=== PATIENT | female | born 1985 ===

== ENCOUNTER 2024-06-01 17:27 | Inpatient (IN) | payer MEDICAID, OTHER ==
[~2024-06-01] VITALS: Ht 162.6 cm; Wt 76.0 kg
[2024-06-01 18:43] LABS: BASOPHILS % (AUTO) 0.2 % (0.0-2.0); EOSINOPHILS % (AUTO) 0.2 % (1.0-6.0); HEMATOCRIT 40.7 % (36-46); HEMOGLOBIN 13.4 g/dL (12.0-16.0); LYMPHOCYTES # (AUTO) 1.2 K/uL (1.0-4.8); LYMPHOCYTES % (AUTO) 10.3 % (22.0-44.0); MEAN CORPUSCULAR HEMOGLOBIN 28.9 pg (26.0-34.0); MEAN CORPUSCULAR VOLUME 88 fL (80-100); MONOCYTES # (AUTO) 0.4 K/uL (0.1-1.0); MONOCYTES % (AUTO) 3.1 % (2.0-9.0); NEUTROPHILS # (AUTO) 9.9 K/uL (1.8-7.7); PLATELET COUNT (AUTO) 256 K/uL (150-450); RED BLOOD CELL COUNT(AUTO) 4.65 MIL/uL (4.00-5.20); RED CELL DISTRIBUTION WIDTH 23.2 % (11.5-14.5); WHITE BLOOD COUNT (AUTO) 11.5 K/uL (4.5-11.0)
[2024-06-01 18:45] LABS: NEUTROPHILS % (AUTO) 86.2 % (40.0-70.0)
[2024-06-01 19:01] LABS: ANION GAP 7 mmol/L (8-16); CARBON DIOXIDE 27 mmol/L (22-29); CHLORIDE 103 mmol/L (98-107); CREATININE 0.85 mg/dL (0.60-1.30); GLOMERULAR FILTR. RATE CALC > 60 mL/min (>60); GLUCOSE,RANDOM 143 mg/dL (70-110); POTASSIUM 3.6 mmol/L (3.5-5.1); SODIUM SERUM 137 mmol/L (136-145); UREA NITROGEN, BLOOD 13 mg/dL (7-18)
[2024-06-01 19:03] LABS: B-TYPE NATRIURETIC PEPTIDE 6 pg/mL (0-100); SALICYLATE < 0.2 mg/dL (2.8-20.0)
[2024-06-01 19:04] LABS: TROPONIN I-HIGH SENSITIVITY Less Than 4 ng/L (<51)
[2024-06-01 19:20] LABS: ALANINE AMINOTRANSFERASE 28 U/L (12-78); ALBUMIN 3.5 g/dL (3.4-5.0); ALKALINE PHOSPHATASE 72 U/L (46-116); ASPARTATE AMINOTRANSFERASE 24 U/L (15-37); BILIRUBIN,TOTAL 0.6 mg/dL (0.1-1.0); CREATINE KINASE, TOTAL ONLY 117 U/L (26-192); RBC MORPHOLOGY COMMENT ABNORMAL RBC MORPH; TOTAL PROTEIN, SERUM 7.4 g/dL (6.4-8.2)
[2024-06-01 19:25] LABS: ACETAMINOPHEN < 2 mcg/mL (10-30)
[2024-06-01 19:31] LABS: PROTHROMBIN TIME 10.3 SEC (9.4-11.6)
[2024-06-01] MEDS: SODIUM CHLORIDE 0.9% 1,000 ML IV ONE (19:43)
[2024-06-01] MEDS: ONDANSETRON HCL 4 MG/2 ML VIAL IVP ONE (19:43)
[2024-06-01 20:17] LABS: PHOSPHORUS 3.2 mg/dL (2.5-4.9)
[2024-06-01 20:57] LABS: ALCOHOL, BLOOD (SERUM) < 3 mg/dL (0-10)
[2024-06-01] MEDS ORDERED: HALOPERIDOL 5 MG TABLET PO PRN (21:30)
[2024-06-01] MEDS ORDERED: LORazepam 2 MG TABLET PO PRN (21:30)
[2024-06-01] MEDS ORDERED: ZOLPIDEM TARTRATE 10 MG TABLET PO PRN (21:30)
[2024-06-01 21:57] LABS: APPEARANCE,URINE CLEAR (CLEAR); BILIRUBIN,URINE NEGATIVE (NEGATIVE); COLOR,URINE YELLOW (YELLOW); GLUCOSE, URINE (UA) NEGATIVE (NEGATIVE); KETONES,URINE TRACE mg/dL (NEGATIVE); LEUKOCYTE ESTERASE ,URINE NEGATIVE (NEGATIVE); NITRATE,URINE NEGATIVE (NEGATIVE); OCCULT BLOOD,URINE NEGATIVE (NEGATIVE); PROTEIN,URINE TRACE mg/dL (NEGATIVE); SPECIFIC GRAVITIY, URINE 1.025 (1.003-1.030); UROBILINOGEN,URINE <=1.0 mg/dL (<=1.0)
[2024-06-01 22:08] LABS: ALCOHOL, URINE DRUG SCREEN NEGATIVE (NEGATIVE); AMPHET/METH SCREEN,URINE NEGATIVE (NEGATIVE); BARBITURATE SCREEN, URINE NEGATIVE (NEGATIVE); BENZODIAZEPINES SCREEN,URINE NEGATIVE (NEGATIVE); CANNABINOID SCREEN,URINE NEGATIVE (NEGATIVE); COCAINE SCREEN,URINE NEGATIVE (NEGATIVE); METHADONE SCREEN, URINE NEGATIVE (NEGATIVE); OPIATE SCREEN,URINE NEGATIVE (NEGATIVE); PHENCYCLIDINE SCREEN,URINE NEGATIVE (NEGATIVE)
[2024-06-01 22:21] LABS: COVID AG,FIA SOURCE NASAL SWAB
[2024-06-01 22:37] LABS: SARS-COV2 (COVID) ANTIGEN,FIA Negative (Negative)
[2024-06-02] VITALS: BP 134/74; PULSE 89; RESP 18; TEMP 97.7; O2SAT 99
[2024-06-02 00:28] VITALS: BP 134/74; PULSE 89; RESP 18; TEMP 97.7
[2024-06-02 08:25] VITALS: BP 124/87; PULSE 94; RESP 18; TEMP 98.1; O2SAT 96
[2024-06-02] MEDS ORDERED: MAGNESIUM HYDROXIDE SUSPENSION 30 ML UDCUP PO PRN (17:30)
[2024-06-02] MEDS ORDERED: MAG HYDROX/ALUMINUM HYD/SIMETH ES 30 ML SUSPENSION UDCUP PO PRN (17:30)
[2024-06-02] MEDS ORDERED: TUBERCULIN, PURIFIED PROTEIN DERIVATIVE 5 TU/0.1 ML SYRINGE ID ONE (17:30)
[2024-06-02] MEDS ORDERED: GuaiFENesin/D-METHORPHAN [SUGAR-FREE] 200-20MG/10 ML SYRUP UDCUP PO PRN (17:30)
[2024-06-02] MEDS ORDERED: HydrOXYzine PAMOATE 50 MG CAPSULE PO PRN (17:30)
[2024-06-02] MEDS ORDERED: PROMETHAZINE HCL 25 MG TABLET PO PRN ×2 (17:30)
[2024-06-02] MEDS ORDERED: ACETAMINOPHEN 325 MG TABLET PO PRN (17:30)
[2024-06-02] MEDS ORDERED: LOPERAMIDE HCL 2 MG CAPSULE PO PRN (17:30)
[2024-06-02] MEDS: CYANOCOBALAMIN 1,000 MCG/ML VIAL IM ONE (17:55)
[2024-06-02 20:30] VITALS: BP 131/77; PULSE 80; RESP 18; TEMP 97.7; O2SAT 99
[2024-06-02] MEDS: MELATONIN 5 MG TABLET PO SCH (21:00)
[2024-06-03 08:02] LABS: CHOL/HDL RATIO 2.4 (3.9-5.7); FREE T4 (FREE THYROXINE) 1.15 ng/dL (0.76-1.46); THYROID STIMULATING HORMONE 1.71 uIU/mL (0.36-3.74)
[2024-06-03 08:10] LABS: HEMOGLOBIN A1C 4.6 % (3.8-5.6)
[2024-06-03] MEDS: PREGABALIN 25 MG CAPSULE PO SCH (08:22)
[2024-06-03] MEDS: DULoxetine HCL 20 MG CAPSULE PO SCH (08:22)
[2024-06-03] MEDS: FOLIC ACID 1 MG TABLET PO SCH (08:22)
[2024-06-03] MEDS: OMEGA-3/DHA/EPA/FISH OIL 1,000 MG CAPSULE PO SCH (08:22)
[2024-06-03] MEDS: THIAMINE 100 MG TABLET PO SCH (08:23)
[2024-06-03] MEDS: MULTIVITAMINS WITH MINERALS, THERAPEUTIC TABLET PO SCH (08:25)
[2024-06-03 10:15] VITALS: BP 120/67; PULSE 72; RESP 17; TEMP 98.1; O2SAT 96
[2024-06-03] MEDS ORDERED: ZOLP-162 PO (13:00)
[2024-06-03] MEDS ORDERED: MELA5TAB40 PO (13:00)
[2024-06-03] MEDS ORDERED: PREG50 PO (13:00)
[2024-06-03] MEDS ORDERED: DULO20CA71 PO (13:00)
[2024-06-03] MEDS ORDERED: PREGABALIN 50 MG CAPSULE PO SCH (13:00)
[2024-06-03] MEDS ORDERED: OMEG-135 PO (13:00)
[2024-06-03] MEDS: PREGABALIN 50 MG CAPSULE PO SCH (16:22)
[2024-06-03 22:36] VITALS: BP 118/72; PULSE 89; RESP 18; TEMP 99; O2SAT 100
[2024-06-04] MEDS: DULoxetine HCL 20 MG CAPSULE PO SCH (09:02)
[2024-06-05] MEDS ORDERED: LOPERAMIDE HCL 2 MG CAPSULE PO PRN (17:30)
== END 2024-06-04 18:06 | disposition home or self-care (01) | DRG 751 ==
LOC: EMS 17:27 → 3EI 21:30
PROVIDERS: ADMIT Psychiatry & Neurology Psychiatry; ATTEND Psychiatry & Neurology Psychiatry
PROC: GZHZZZZ Group Psychotherapy (ICD-10-PCS; principal; 2024-06-02)
PROC: GZ58ZZZ Individual Psychotherapy, Cognitive-Behavioral (ICD-10-PCS; 2024-06-02)
PROC: GZ56ZZZ Individual Psychotherapy, Supportive (ICD-10-PCS; 2024-06-02)
DX: F33.2 Major depressive disorder, recurrent severe without psychotic features (principal); R45.851 Suicidal ideations; D72.829 Elevated white blood cell count, unspecified; M79.7 Fibromyalgia; T50.902A Poisoning by unspecified drugs, medicaments and biological substances, intentional self-harm, initial encounter; Z20.822 Contact with and (suspected) exposure to COVID-19; R73.9 Hyperglycemia, unspecified; Z55.9 Problems related to education and literacy, unspecified; Z56.0 Unemployment, unspecified; Z59.9 Problem related to housing and economic circumstances, unspecified; Z63.9 Problem related to primary support group, unspecified; Z65.3 Problems related to other legal circumstances; Z80.49 Family history of malignant neoplasm of other genital organs; Y92.89 Other specified places as the place of occurrence of the external cause
CPT/HCPCS: 71045; 80048; 80061; 80076; 80307; 81003; 82550; 83036; 83735; 83880; 84100; 84439; 84443; 84484; 84703; 85025; 85610; 85730; 86592; 93005; 99285; G0480; G0481; J2405; J3420; J7030; 36415-L1; 36415-TC